=== PATIENT | female | born 1985 | race Caucasian/White ===

== ENCOUNTER 2016-10-26 15:53 | Emergency (ER) | payer OTHER ==
[2016-10-26] MEDS ORDERED: ONDANSETRON 4 MG TAB.RAPDIS PO ONE (16:04)
--- NOTE | 2016-10-26 16:04 | ER Document Report ---
ED Medical Screen (RME) - General Stated Complaint: VOMITING Notes: 31 yo female c/o epigastric pain and vomiting x 30 minutes. + hx/o lupus pt actively vomiting.
[2016-10-26] MEDS ORDERED: ONDANSETRON 4 MG TAB.RAPDIS ONE (16:46)
[2016-10-26 17:04] LABS: ABSOLUTE BASOPHILS # (AUTO) 0.1 10^3/uL (0.0-0.2); ABSOLUTE EOSINOPHILS # (AUTO) 0.6 10^3/uL (0.0-0.6); ABSOLUTE LYMPHOCYTES (AUTO) 3.1 10^3/uL (0.5-4.7); ABSOLUTE MONOCYTES (AUTO) 0.7 10^3/uL (0.1-1.4); ABSOLUTE NEUT (AUTO) 8.7 10^3/uL (1.7-8.2); BASOPHILS % (AUTO) 0.7 % (0-2); EOSINOPHILS % (AUTO) 4.6 % (0-6); HEMATOCRIT 43.7 % (36.0-47.0); HEMOGLOBIN 14.6 g/dL (12.0-15.5); HGB HCT DIFFERENCE 0.1; LYMPHOCYTES % (AUTO) 23.4 % (13-45); MEAN CORPUSCULAR HGB CONC 33.3 g/dL (32.0-36.0); MEAN CORPUSCULAR VOLUME 87 fl (80-97); MONOCYTES % (AUTO) 5.2 % (3-13); RED BLOOD COUNT 5.03 10^6/uL (3.72-5.28); RED CELL DISTRIBUTION WIDTH 13.8 % (11.5-14.0); SEGMENTED NEUTROPHILS % (AUTO) 66.1 % (42-78); WHITE BLOOD COUNT 13.2 10^3/uL (4.0-10.5)
[2016-10-26 17:07] LABS: ALANINE AMINOTRANSFERASE 29 U/L (9-52); ALBUMIN 4.4 g/dL (3.5-5.0); ALKALINE PHOSPHATASE 76 U/L (38-126); ANION GAP 11 (5-19); ASPARTATE AMINO TRANSFERASE 16 U/L (14-36); BILIRUBIN,TOTAL 0.6 mg/dL (0.2-1.3); BLOOD UREA NITROGEN 10 mg/dL (7-20); CALCIUM 9.8 mg/dL (8.4-10.2); CARBON DIOXIDE 26 mmol/L (22-30); CHLORIDE 111 mmol/L (98-107); CREATININE RESULT 0.66 mg/dL (0.52-1.25); GLUCOSE 106 mg/dL (75-110); LIPASE 41.2 U/L (23-300); POTASSIUM 4.9 mmol/L (3.6-5.0); TOTAL PROTEIN 7.4 g/dL (6.3-8.2)
[2016-10-26] MEDS ORDERED: HYDROCODONE/ACETAMINOPHEN 5-325 MG 6 TAB/DSPK PO PRN (19:44)
[2016-10-26] MEDS ORDERED: ONDANSETRON ODT 4 MG TAB (6 TAB/DSPK) PO PRN (19:44)
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
[2016-10-26] MEDS ORDERED: LIDOCAINE 5% (700 MG) TRANSDERMAL ADH..PATCH TP ONE (19:45)
== END 2016-10-26 20:26 | disposition home or self-care (01) ==
LOC: ER 15:53
DX: G89.29 Other chronic pain (principal); M54.9 Dorsalgia, unspecified; M54.2 Cervicalgia; V89.2XXS Person injured in unspecified motor-vehicle accident, traffic, sequela; R11.2 Nausea with vomiting, unspecified; Z88.0 Allergy status to penicillin; Z88.8 Allergy status to other drugs, medicaments and biological substances; Z88.2 Allergy status to sulfonamides
CPT/HCPCS: 99283; 36415; 83690; 85025; 80053; S0119

== ENCOUNTER 2016-11-15 05:31 | Emergency (ER) | payer OTHER ==
[2016-11-15 06:10] LABS: ABSOLUTE BASOPHILS # (AUTO) 0.1 10^3/uL (0.0-0.2); ABSOLUTE EOSINOPHILS # (AUTO) 0.2 10^3/uL (0.0-0.6); ABSOLUTE LYMPHOCYTES (AUTO) 1.5 10^3/uL (0.5-4.7); ABSOLUTE MONOCYTES (AUTO) 0.7 10^3/uL (0.1-1.4); ABSOLUTE NEUT (AUTO) 9.9 10^3/uL (1.7-8.2); BASOPHILS % (AUTO) 0.4 % (0-2); EOSINOPHILS % (AUTO) 1.9 % (0-6); HEMATOCRIT 39.1 % (36.0-47.0); HEMOGLOBIN 13.1 g/dL (12.0-15.5); HGB HCT DIFFERENCE 0.2; LYMPHOCYTES % (AUTO) 12.2 % (13-45); MEAN CORPUSCULAR HEMOGLOBIN 28.9 pg (27.0-33.4); MEAN CORPUSCULAR HGB CONC 33.4 g/dL (32.0-36.0); MEAN CORPUSCULAR VOLUME 86 fl (80-97); MONOCYTES % (AUTO) 5.5 % (3-13); RED BLOOD COUNT 4.53 10^6/uL (3.72-5.28); RED CELL DISTRIBUTION WIDTH 13.6 % (11.5-14.0); WHITE BLOOD COUNT 12.4 10^3/uL (4.0-10.5)
[2016-11-15 06:22] LABS: ALANINE AMINOTRANSFERASE 32 U/L (9-52); ALBUMIN 3.9 g/dL (3.5-5.0); ALKALINE PHOSPHATASE 64 U/L (38-126); ANION GAP 17 (5-19); ASPARTATE AMINO TRANSFERASE 13 U/L (14-36); BILIRUBIN,DIRECT 0.1 mg/dL (0.0-0.4); BILIRUBIN,TOTAL 0.3 mg/dL (0.2-1.3); BLOOD UREA NITROGEN 8 mg/dL (7-20); CALCIUM 8.3 mg/dL (8.4-10.2); CARBON DIOXIDE 24 mmol/L (22-30); CHLORIDE 105 mmol/L (98-107); CREATINE KINASE 79 U/L (30-135); GLUCOSE 127 mg/dL (75-110); POTASSIUM 4.2 mmol/L (3.6-5.0); SODIUM 145.8 mmol/L (137-145); TOTAL PROTEIN 6.6 g/dL (6.3-8.2)
[2016-11-15 06:33] LABS: CREATINE KINASE MB < 0.22 ng/mL (<4.55); TROPONIN I < 0.012 ng/mL
--- NOTE | 2016-11-15 07:34 | ER Document Report ---
ED Seizure - General Mode of Arrival: Medic Information source: Patient, Relative - - HPI Patient complains to provider of: First seizure Time of onset: 0430 Continued on arrival to ED: No Episode witnessed (by whom): Yes - Preceding symptoms/context: Recent drug use, Changed meds or dosage, Other - Took tramadol Character of seizure: No: Incontinent bladder <GAURAV KRAUS - Last Filed: 11/15/16 09:24> <GEORGES KIRBY - Last Filed: 11/15/16 21:19> - General Chief Complaint: Passed Out Prior to Arrival Stated Complaint: ALTERED MENTAL STATUS Notes: Patient is a 31-year-old female presenting to the emergency department via EMS after having a possible seizure at approximately 0430 this morning. Patient's states that he awoke to a bunch of banging in the bathroom, and he went to check on the patient and she began to convulse, sliding down the door with her hands curled. Patient's states that she was turning blue and her tongue was sticking out. Patient's called EMS. Patient's states that when she stopped convulsing, she was sleeping, and then she began to convulse one more time. At that point EMS showed up and brought her in. Patient's states that while she was lying on the bathroom floor, she had some blood coming out of her mouth that is now dried on her arm. Patient now states that she feels very tired, and she has been having bilateral leg swelling and midsternal chest pain. Patient states that she just moved here from [place], and she just started at a new pain management doctor for her rheumatoid arthritis and lupus. Patient was put on Neurontin, steroid, and this morning she took a tramadol. Patient states that the only thing she remembers about this morning is that she woke up to do her makeup and then the next thing she remembers is that she was in the ambulance. (GAURAV KRAUS) - Related Data Allergies/Adverse Reactions: Penicillins Allergy (Verified 10/26/16 16:15) prochlorperazine [From Compazine] Allergy (Verified 10/26/16 16:15) promethazine [From Phenergan] Allergy (Verified 10/26/16 16:15) Sulfa (Sulfonamide Antibiotics) Allergy (Verified 10/26/16 16:15) Past Medical History - General Information source: Patient, Relative - Spouse - Social History Smoking Status: Unknown if Ever Smoked Lives with: Family Family History: Reviewed & Not Pertinent Renal/ Medical History: Denies: Hx Peritoneal Dialysis Musculoskeltal Medical History: Reports Hx Arthritis - RA Surgical Hx: Negative <GAURAV KRAUS - Last Filed: 11/15/16 09:24> Review of Systems - Review of Systems Constitutional: No symptoms reported EENT: No symptoms reported Cardiovascular: See HPI, Chest pain Respiratory: No symptoms reported Gastrointestinal: No symptoms reported Genitourinary: No symptoms reported. denies: Incontinence Female Genitourinary: No symptoms reported Musculoskeletal: No symptoms reported Skin: No symptoms reported Hematologic/Lymphatic: No symptoms reported Neurological/Psychological: See HPI, Seizure -: Yes All other systems reviewed and negative <GAURAV KRAUS - Last Filed: 11/15/16 09:24> Physical Exam - General General appearance: Alert - HEENT Head: Normocephalic, Atraumatic Eyes: Normal Pupils: PERRL - Respiratory Respiratory status: No respiratory distress Chest status: Nontender Breath sounds: Normal Chest palpation: Normal - Cardiovascular Rhythm: Regular Heart sounds: Normal auscultation Murmur: No - Abdominal Inspection: Obese Distension: No distension Bowel sounds: Normal Tenderness: Nontender Organomegaly: No organomegaly - Back Back: Normal, Nontender - Extremities General upper extremity: Normal inspection, Nontender General lower extremity: Normal inspection, Nontender - Neurological Neuro grossly intact: Yes Cognition: Normal Orientation: AAOx4 [place] Coma Scale Eye Opening: Spontaneous Liu Coma Scale Verbal: Oriented [place] Coma Scale Motor: Obeys Commands [place] Coma Scale Total: 15 Speech: Normal - Psychological Associated symptoms: Normal affect, Normal mood - Skin Skin Temperature: Warm Skin Moisture: Dry Skin Color: Normal <GAURAV KRAUS - Last Filed: 11/15/16 09:24> Course - Laboratory Result Diagrams: 11/15/16 05:57 11/15/16 05:57 <GAURAV KRAUS - Last Filed: 11/15/16 09:24> - Laboratory Result Diagrams: 11/15/16 05:57 11/15/16 05:57 <GEORGES KIRBY - Last Filed: 11/15/16 21:19> - Re-evaluation Re-evalutation: 11/15/16 08:30 I personally performed the services described in the documentation, reviewed and edited the documentation which was dictated to my scribe in my presence, and it accurately records my words and actions. states she recently moved here from out of town is out of all of her chronic medications for lupus chronic pain and rheumatoid arthritis a local primary care physician gave her some Ultram the other day and is sending her to a plate painter which she has an appointment for. She describes an event that took place this morning which is somewhat inconclusive based on the history she says she was getting ready to put her makeup on and neck he she remembers is being in the ambulance. states he heard her banging on the wall to get his attention and we realized she was in the bathroom he came to get her. He said she was sliding down the wall having potential seizure-like activity she was not incontinent of urine or stool. EMS reports snoring possibly postictal. She does not have a history of a seizure disorder told her stop taking the Ultram as it can predispose to it. CT of head CT of the neck negative acute laboratory evaluation is all negative for acute pathology with the exception of a urinary tract infection which gave her Macrobid for. She is requesting Dilaudid for headache explained to her that we don't use Dilaudid for headaches in the emergency department nor do we treat chronic pain in this emergency department going forward have her follow-up with a primary care physician treat her with antibiotics for urinary tract infection given the name and number to a neurologist to follow up with his well. She is to follow up with these physicians in the next 3-4 days and discussed reasons Filomena return sooner 11/15/16 08:43 Patient reports the Macrobid doesn't work for her chronic UTIs prefers Keflex switch over to Keflex she lists an allergy to penicillin but states she can take Keflex. (GEORGES KIRBY) - Vital Signs Vital signs: Temp Pulse Resp BP Pulse Ox 98.6 F 139 H 16 106/62 95 11/15/16 08:30 11/15/16 05:41 11/15/16 08:30 11/15/16 08:30 11/15/16 08:30 - Laboratory Laboratory results interpreted by me: 11/15/16 11/15/16 11/15/16 05:57 05:57 07:43 WBC 12.4 H Seg Neutrophils % 80.0 H Lymphocytes % 12.2 L Absolute Neutrophils 9.9 H Sodium 145.8 H Glucose 127 H Calcium 8.3 L AST 13 L Urine Protein 100 H Urine Blood LARGE H Ur Leukocyte Esterase TRACE H Urine Ascorbic Acid 40 H Discharge <GAURAV KRAUS - Last Filed: 11/15/16 09:24> <GEORGES KIRBY - Last Filed: 11/15/16 21:19> - Discharge Clinical Impression: altered mental status resolved, cephalgia Urinary tract infection Qualifiers: Urinary tract infection type: acute cystitis Hematuria presence: without hematuria Qualified Code(s): N30.00 - Acute cystitis without hematuria Chronic pain Qualifiers: Chronic pain type: chronic pain syndrome Qualified Code(s): G89.4 - Chronic pain syndrome Condition: Stable Disposition: HOME, SELF-CARE Instructions: Urinary Tract Infection ([facility]) Additional Instructions: possible Seizure Seizures may be due to drugs and alcohol, strokes, brain injury, or infection. In the most common form of epilepsy, no cause can be found. You will require further evaluation to determine if you have a seizure , and to determine whether anti-seizure medication is required. This follow-up testing is important, so please call us if you encounter problems with scheduling of tests or appointments. YOU SHOULD NOT DRIVE until released to do so by your physician. The law requires that seizures be reported to the home delivery driver's license bureau--a seizure while driving could be catastrophic. Call the doctor if seizures recur, or if you develop new symptoms such as fever, severe headache, stiff neck, confusion or increasing sleepiness, weakness or numbness, or visual problems. Stop Ultram Urinary Tract Infection Your evaluation indicates that you have a urinary tract infection. This is due to germs growing in the bladder. This is a common problem. This infection usually responds quickly to antibiotics. Your antibiotic should be taken exactly as prescribed. Drink plenty of fluids -- three to four quarts a day. Occasionally, a bladder anesthetic will be prescribed to help stop the feeling of urgency until the antibiotic has a chance to clear the infection. This may cause your urine to be dark orange. Certain urine infections require a culture. If the doctor obtained a culture, the results will be back in two days. You should call to see if a change in treatment is needed. A repeat urinalysis after you finish treatment is often recommended. The physician will let you know if further testing is required. Call the doctor if you develop fever, chills, flank pain, inability to urinate, or blood in the urine. Chronic Pain Control Stress, inactivity, and depression make pain more severe regardless of the cause of the pain. Stress and poor physical condition can cause pain such as headaches and backache. Relaxation: Rest in a quiet place with your eyes closed for 20 minutes twice daily. Concentrate on a pleasant image, or simply "feel" your breathing. Clear your mind. Stress management: Deal with your "stressors." Either take action, or eliminate the stressor from your life. Don't let things hang over you. Accept those things you can't change. Nutrition: Eat small, balanced meals -- don't skip, don't overeat. Meals should be high-carbohydrate, low-sugar, low-fat. Exercise: Exercise helps painful conditions and eases stress. Get 30 minutes of moderate exercise, five days a week. Do an activity that does not flare your pain. Precautions: Pain which continues to disrupt daily activities, or which changes in nature, requires a medical evaluation. Pain Clinic referral is available. We do not manage chronic pain in the Emergency Department. We will try to appropriately help you through an acute flare of your chronic painful condition , but for on-going chronic pain that does not improve, you will need to see your private doctor or plate painter. We do not provide repeated medication management of chronic painful conditions. If you wish, we can provide the name of local pain management physicians. Prescriptions: Cephalexin Monohydrate [Keflex 500 mg Capsule] 500 mg PO QID #20 capsule Nitrofurantoin/Nitrofuran Mac [Macrobid 100 mg Capsule] 1 tab PO BID #20 capsule Referrals: JESSICA AMBROSIO MD [ACTIVE STAFF] - Follow up in 3-5 days (Call his office today for follow-up appointment in regards to evaluating for seizures.) YASH XIE MD [ACTIVE STAFF] - Follow up in 3-5 days (Return to the ER sooner for increasing worsening or new symptoms) Scribe Documentation - Scribe Written by Kamryn:: Gaurav Kraus 11/15/2016 0724 acting as scribe for :: GAURAV Marrero - Last Filed: 11/15/16 09:24>
[2016-11-15 08:07] LABS: APPEARANCE,URINE SLIGHTLY-CLOUDY; BILIRUBIN,URINE NEGATIVE (NEGATIVE); GLUCOSE, URINE NEGATIVE (NEGATIVE); KETONES,URINE NEGATIVE (NEGATIVE); LEUKOCYTE ESTERASE,URINE TRACE (NEGATIVE); NITRITE,URINE NEGATIVE (NEGATIVE); PROTEIN,URINE 100 mg/dL (NEGATIVE); URINE SPECIFIC GRAVITY 1.015; UROBILINOGEN,URINE NEGATIVE mg/dL (<2.0)
[2016-11-15] MEDS ORDERED: ACETAMINOPHEN 325 MG TABLET PO ONE (08:12)
[2016-11-15 08:22] LABS: URINE BARBITURATES SCREEN NEGATIVE; URINE METHADONE SCREEN NEGATIVE; URINE OPIATES LOW NEGATIVE; URINE PHENCYCLIDINE SCREEN NEGATIVE
[2016-11-15 08:58] VITALS: BP 106/62
--- NOTE | 2016-11-15 13:08 | EKG REPORT ---
SEVERITY:- OTHERWISE NORMAL ECG - SINUS TACHYCARDIA : Confirmed by: Socorro Benitez MD 15-Nov-2016 13:08:27
== END 2016-11-15 09:00 | disposition home or self-care (01) ==
LOC: ER 05:31
DX: N30.00 Acute cystitis without hematuria (principal); R41.82 Altered mental status, unspecified; R51 Headache; G89.4 Chronic pain syndrome
CPT/HCPCS: 36415; 70450; 72125; 80053; 80307; 81001; 81025; 82550; 82553; 84484; 85025; 93005; 93010; 99285

== ENCOUNTER 2017-03-05 19:17 | Emergency (ER) | payer OTHER ==
[2017-03-05 19:39] VITALS: BP 130/61
[2017-03-05] MEDS ORDERED: OXYCODONE-ACETAMINOPHEN 5-325 MG TABLET PO ONE (20:04)
[2017-03-05] MEDS ORDERED: ONDANSETRON 4 MG TAB.RAPDIS PO ONE (20:04)
--- NOTE | 2017-03-05 20:06 | ER Document Report ---
ED GI/ - General Chief Complaint: Possible Kidney Stone Stated Complaint: PAIN URINATING/HEADACHE/LEFT FLANK PAIN Time Seen by Provider: 03/05/17 19:55 Notes: Patient is a 32-year-old female that comes emergency department for chief complaint of flank pain that is worse on the left side and radiating around to her left lower abdomen, nausea, and also "pain in the urethra intermittently". She states last time she had this symptom she had a kidney stone. She denies fever. She was placed on Macrobid and Pyridium 3 days ago, states she is has not improved. She denies vaginal discharge or bleeding. She states she suffers from chronic urinary tract infections. She denies any daily medications, only surgeries reported are C-sections. She denies any other medical history. TRAVEL OUTSIDE OF THE [place] IN LAST 30 DAYS: No - Related Data Allergies/Adverse Reactions: amoxicillin Allergy (Verified 03/05/17 19:48) metoclopramide [From Reglan] Allergy (Verified 03/05/17 19:48) Penicillins Allergy (Verified 03/05/17 19:38) prochlorperazine [From Compazine] Allergy (Verified 03/05/17 19:38) promethazine [From Phenergan] Allergy (Verified 03/05/17 19:38) Sulfa (Sulfonamide Antibiotics) Allergy (Verified 03/05/17 19:38) Past Medical History - General Information source: Patient - Social History Smoking Status: Never Smoker Frequency of alcohol use: None Drug Abuse: None Lives with: Family Family History: Reviewed & Not Pertinent Renal/ Medical History: Reports: Hx Kidney Stones. Denies: Hx Peritoneal Dialysis Musculoskeltal Medical History: Reports Hx Arthritis - RA Past Surgical History: Reports: Hx Section, Hx Oral Surgery - wisdom teeth Review of Systems - Review of Systems Constitutional: No symptoms reported EENT: No symptoms reported Cardiovascular: No symptoms reported Respiratory: No symptoms reported Gastrointestinal: See HPI Genitourinary: See HPI Female Genitourinary: No symptoms reported Musculoskeletal: No symptoms reported Skin: No symptoms reported Hematologic/Lymphatic: No symptoms reported Neurological/Psychological: No symptoms reported Physical Exam - Vital signs Vitals: Temp Pulse Resp BP Pulse Ox 98.5 F 99 20 130/61 H 99 03/05/17 19:37 03/05/17 19:37 03/05/17 19:37 03/05/17 19:37 03/05/17 19:37 Interpretation: Normal - General General appearance: Appears well, Alert In distress: None - HEENT Head: Normocephalic, Atraumatic Eyes: Normal Conjunctiva: Normal Extraocular movements intact: Yes Eyelashes: Normal Pupils: PERRL Nasal: Normal Mouth/Lips: Normal Mucous membranes: Normal Pharynx: Normal Neck: Normal - Respiratory Respiratory status: No respiratory distress Chest status: Nontender Breath sounds: Normal. No: Decreased air movement, Wheezing Chest palpation: Normal - Cardiovascular Rhythm: Regular. No: Tachycardia Heart sounds: Normal auscultation, S1 appreciated, S2 appreciated Murmur: No - Abdominal Inspection: Normal Distension: No distension Bowel sounds: Normal Tenderness: Nontender. No: Tender, Guarding - Completely nontender and every quadrant, no rigidity, no guarding Organomegaly: No organomegaly - Back Back: Normal, Nontender. No: Tender, CVA tenderness - Extremities General upper extremity: Normal inspection, Nontender, Normal color, Normal ROM , Normal temperature General lower extremity: Normal inspection, Nontender, Normal color, Normal ROM , Normal temperature, Normal weight bearing. No: Mari's sign - Neurological Neuro grossly intact: Yes Cognition: Normal Orientation: AAOx4 [place] Coma Scale Eye Opening: Spontaneous Liu Coma Scale Verbal: Oriented [place] Coma Scale Motor: Obeys Commands [place] Coma Scale Total: 15 Speech: Normal Motor strength normal: LUE, RUE, LLE, RLE Sensory: Normal - Psychological Associated symptoms: Normal affect, Normal mood - Skin Skin Temperature: Warm Skin Moisture: Dry Skin Color: Normal Course - Re-evaluation Re-evalutation: Patient does not appear to be in any distress, no tachycardia, no hypotension, no fever. CBC and chemistry unremarkable. Patient does not have CVA tenderness or abdominal tenderness on my examination. Patient insists that she is having stone, there is no recent imaging, she patient states she has not had any recent imaging either here or back home. Patient requests a CAT scan. Urine does show nitrates, red blood cells. We will perform CAT scan to rule out obstructive stone with infection. CT shows no nephrolithiasis or ureterolithiasis, does show incidental mesenteric lymphadenopathy, however patient has no fever, leukocytosis, or other concerning abnormality suggesting underlying concerning abnormality other than urinary tract infection. Patient given Rocephin, will be placed on Keflex , urine culture, discussed results with patient in detail, discussed follow-up, discussed return precautions, patient states understanding and agreement. - Vital Signs Vital signs: Temp Pulse Resp BP Pulse Ox 98.5 F 99 20 130/61 H 99 03/05/17 19:37 03/05/17 19:37 03/05/17 19:37 03/05/17 19:37 03/05/17 19:37 - Laboratory Result Diagrams: 03/05/17 20:20 03/05/17 20:20 Laboratory results interpreted by me: 03/05/17 03/05/17 19:50 20:20 Glucose 111 H Urine Blood LARGE H Urine Nitrite POSITIVE H Urine Urobilinogen 4.0 H Discharge - Discharge Clinical Impression: Flank pain, Dysuria Condition: Stable Disposition: HOME, SELF-CARE Additional Instructions: No kidney stone is seen either in your kidneys or passing through the urinary tract. There is some swollen lymph nodes, this is nonspecific, could be from recent viral illness or other abnormality. Your urine indicates an infection. You have been given Rocephin tonight, take the antibiotics prescribed to completion. Stop macrobid. Continue pyridium. Follow-up with primary care. Return to emergency department for any concerning or worsening symptoms including fever, vomiting, etc. Prescriptions: Cephalexin Monohydrate [Keflex 500 mg Capsule] 500 mg PO BID #14 capsule
[2017-03-05 20:20] LABS: APPEARANCE,URINE CLEAR; BILIRUBIN,URINE NEGATIVE (NEGATIVE); GLUCOSE, URINE NEGATIVE (NEGATIVE); KETONES,URINE NEGATIVE (NEGATIVE); LEUKOCYTE ESTERASE,URINE NEGATIVE (NEGATIVE); NITRITE,URINE POSITIVE (NEGATIVE); PROTEIN,URINE NEGATIVE (NEGATIVE); URINE SPECIFIC GRAVITY 1.013
[2017-03-05 20:26] LABS: ABSOLUTE BASOPHILS # (AUTO) 0.1 10^3/uL (0.0-0.2); ABSOLUTE EOSINOPHILS # (AUTO) 0.5 10^3/uL (0.0-0.6); ABSOLUTE LYMPHOCYTES (AUTO) 2.5 10^3/uL (0.5-4.7); ABSOLUTE MONOCYTES (AUTO) 0.8 10^3/uL (0.1-1.4); ABSOLUTE NEUT (AUTO) 6.5 10^3/uL (1.7-8.2); EOSINOPHILS % (AUTO) 4.5 % (0-6); HEMATOCRIT 38.4 % (36.0-47.0); HEMOGLOBIN 13.1 g/dL (12.0-15.5); HGB HCT DIFFERENCE 0.9; LYMPHOCYTES % (AUTO) 23.9 % (13-45); MEAN CORPUSCULAR HEMOGLOBIN 27.9 pg (27.0-33.4); MEAN CORPUSCULAR HGB CONC 34.1 g/dL (32.0-36.0); MEAN CORPUSCULAR VOLUME 82 fl (80-97); MONOCYTES % (AUTO) 7.4 % (3-13); RED BLOOD COUNT 4.69 10^6/uL (3.72-5.28); RED CELL DISTRIBUTION WIDTH 13.9 % (11.5-14.0); SEGMENTED NEUTROPHILS % (AUTO) 63.2 % (42-78); WHITE BLOOD COUNT 10.3 10^3/uL (4.0-10.5)
[2017-03-05 20:45] LABS: ALANINE AMINOTRANSFERASE 24 U/L (9-52); ALBUMIN 3.9 g/dL (3.5-5.0); ALKALINE PHOSPHATASE 73 U/L (38-126); ANION GAP 13 (5-19); ASPARTATE AMINO TRANSFERASE 15 U/L (14-36); BILIRUBIN,DIRECT 0.2 mg/dL (0.0-0.4); BILIRUBIN,TOTAL 0.4 mg/dL (0.2-1.3); BLOOD UREA NITROGEN 9 mg/dL (7-20); CARBON DIOXIDE 23 mmol/L (22-30); CHLORIDE 104 mmol/L (98-107); CREATININE RESULT 0.75 mg/dL (0.52-1.25); GLUCOSE 111 mg/dL (75-110); POTASSIUM 4.2 mmol/L (3.6-5.0); SODIUM 139.7 mmol/L (137-145); TOTAL PROTEIN 7.1 g/dL (6.3-8.2)
[2017-03-05] MEDS ORDERED: MORPHINE SULFATE 10 MG/ML INJ IM ONE (21:10)
--- NOTE | 2017-03-05 21:41 | RADIOLOGY REPORT (SQ) ---
EXAM DESCRIPTION: CT LTD RENAL STONE PROTOCOL ON COMPLETED DATE/TIME: 03/05/2017 9:20 pm REASON FOR STUDY: left flank pain, UTI, ? obstructing stone COMPARISON: None. TECHNIQUE: CT scan of the abdomen and pelvis performed without intravenous or oral contrast. Images reviewed with lung, soft tissue, and bone windows. Reconstructed coronal and sagittal MPR images revi ewed. All images stored on PACS. All CT scanners at this facility use dose modulation, iterative reconstruction, and/or weight based d osing when appropriate to reduce radiation dose to as low as reasonably achievable (ALARA). [facility]: Dose Right [facility]: CareDose [facility]: Dose Right [facility]: Teradose 4D [facility]: [employer] RADIATION DOSE: Up-to-date CT equipment and radiation dose reduction techniques were employed. CTDIv ol: 18.9 mGy. DLP: 1019 mGy-cm.mGy. LIMITATIONS: None. FINDINGS: LOWER CHEST: No significant findings. No nodules or infiltrates. NON-CONTRASTED LIVER, SPLEEN, ADRENALS: Evaluation limited by lack of IV contrast. No identified sign ificant masses. PANCREAS: No masses. No peripancreatic inflammatory changes. GALLBLADDER: No identified stones by CT criteria. No inflammatory changes to suggest cholecystitis. RIGHT KIDNEY AND URETER: No suspicious masses. Assessment limited by lack of IV contrast. No signif icant calcifications. No hydronephrosis or hydroureter. LEFT KIDNEY AND URETER: No suspicious masses. Assessment limited by lack of IV contrast. No signifi cant calcifications. No hydronephrosis or hydroureter. AORTA AND RETROPERITONEUM: No aneurysm. No retroperitoneal masses or adenopathy. BOWEL AND PERITONEAL CAVITY: No obvious masses or inflammatory changes. No free fluid. Multiple prom inent mesenteric lymph nodes are identified. This is a nonspecific finding but could be related to a mesenteric adenitis. APPENDIX: Normal. PELVIS, BLADDER, AND ABDOMINAL WALL:No abnormal masses. No free fluid. Bladder normal. BONES: No significant findings. OTHER: No other significant finding. IMPRESSION: Multiple prominent mesenteric lymph nodes are identified as noted above. This is a nons pecific finding but could be related to mesenteric adenitis. No renal or ureteric calculi are identi fied. Other findings as noted above TECHNICAL DOCUMENTATION: JOB ID: [id number] Quality ID # [id number]: Final reports with documentation of one or more dose reduction techniques (e.g., Au tomated exposure control, adjustment of the mA and/or kV according to patient size, use of iterative reconstruction technique) 2010 [employer]- All Rights Reserved
[2017-03-05] MEDS ORDERED: CEFTRIAXONE INJ 1000 MG VIAL IM ONE (22:05)
[2017-03-05] MEDS ORDERED: HYDROCODONE/ACETAMINOPHEN 5-325 MG 6 TAB/DSPK PO PRN (22:05)
[2017-03-05] MEDS ORDERED: LIDOCAINE 1% INJ-PF (10 MG/ML) 30 ML SDV INJ ONE (22:05)
== END 2017-03-05 22:29 | disposition home or self-care (01) ==
LOC: ER 19:17
DX: R30.0 Dysuria (principal); R10.9 Unspecified abdominal pain; R10.32 Left lower quadrant pain; R11.0 Nausea
CPT/HCPCS: 99284; 96372; 36415; 87086; 85025; 81025; 80053; 81001; 76380; S0119; J3490; J2270; J0696

== ENCOUNTER 2017-04-05 17:28 | Emergency (ER) | payer OTHER ==
--- NOTE | 2017-04-05 18:36 | ER Document Report ---
HPI - HPI Pain Level: 4 Context: 32 yo female c/o left ear pain x 1 week. no fever Associated Symptoms: None Exacerbated by: Denies Relieved by: Denies - ROS Systems Reviewed and Negative: Yes All other systems reviewed and negative - DERM Skin Color: Normal Past Medical History - General Information source: Patient - Social History Smoking Status: Never Smoker Frequency of alcohol use: None Drug Abuse: None Lives with: Family Family History: Reviewed & Not Pertinent Patient has suicidal ideation: No Patient has homicidal ideation: No Renal/ Medical History: Reports: Hx Kidney Stones. Denies: Hx Peritoneal Dialysis Musculoskeltal Medical History: Reports Hx Arthritis - RA Past Surgical History: Reports: Hx Section, Hx Oral Surgery - wisdom teeth Vertical Provider Document - CONSTITUTIONAL Agree With Documented VS: Yes Exam Limitations: No Limitations - INFECTION CONTROL TRAVEL OUTSIDE OF THE [place] IN LAST 30 DAYS: No - HEENT HEENT: Atraumatic, PERRLA Notes: + pus behind left TM. left EAC erythematous and edematous. + pre and post auricular tenderness. mastoid nontender - NECK Neck: Normal Inspection, Supple - RESPIRATORY Respiratory: Breath Sounds Normal, No Respiratory Distress O2 Sat by Pulse Oximetry: 98 - CARDIOVASCULAR Cardiovascular: Regular Rate, Regular Rhythm - MUSCULOSKELETAL/EXTREMETIES Musculoskeletal/Extremeties: MIMI ALONSO - NEURO Level of Consciousness: Awake, Alert, Appropriate - DERM Integumentary: Warm, Dry Course - Vital Signs Vital signs: Temp Pulse Resp BP Pulse Ox 97.9 F 101 H 18 121/71 98 04/05/17 17:32 04/05/17 17:32 04/05/17 17:32 04/05/17 17:32 04/05/17 17:32 Discharge - Discharge Clinical Impression: Acute left otitis media Acute otitis externa of left ear Qualifiers: Otitis externa type: unspecified type Qualified Code(s): H60.502 - Unspecified acute noninfective otitis externa, left ear Condition: Stable Disposition: HOME, SELF-CARE Instructions: Use of Ear Drops ([facility]), Otitis Externa ([facility]), Otitis Media ([facility]) , Antibiotic Therapy ([facility]) Additional Instructions: You have an inner and outer ear infection take all antibiotic as prescribed follow up with primary care if symptoms persist Prescriptions: Cefdinir [Omnicef 300 mg Capsule] 1 cap PO BID #30 capsule Ciprofloxacin HCl/Dexameth [Ciprodex Otic Suspension 7.5 ml Bottle] 4 drop OT BID #1 bottle
[2017-04-05 19:01] VITALS: BP 126/81
== END 2017-04-05 19:01 | disposition home or self-care (01) ==
LOC: ER 17:28
DX: H92.02 Otalgia, left ear (principal); H66.92 Otitis media, unspecified, left ear; H60.502 Unspecified acute noninfective otitis externa, left ear
CPT/HCPCS: 99282

== ENCOUNTER → 2017-05-16 | Outpatient (CLI) | payer OTHER ==
--- NOTE | 2017-05-16 17:16 | RADIOLOGY REPORT (SQ) ---
EXAM DESCRIPTION: MRI CERVICAL SPINE WITHOUT COMPLETED DATE/TIME: 05/16/2017 4:26 pm REASON FOR STUDY: CERVICALGIA M54.2 CERVICALGIA COMPARISON: CT cervical spine 11/15/2016 TECHNIQUE: Sagittal and Axial imaging includes T1, T2, STIR and gradient echo sequences. LIMITATIONS: None. FINDINGS: ALIGNMENT: Normal. VERTEBRAE: Intact. BONE MARROW: Normal. No marrow replacement or reactive changes. DISCS: Diffuse decreased T2 weighted intervertebral disc signal. Disc space loss of height at C5-6 a nd C6-7. HARDWARE: None in the spine. CORD AND BASE OF BRAIN: Normal in size and signal intensity. SOFT TISSUES: No soft tissue masses. C1-C2: No significant spinal stenosis. C2-C3: No significant spinal stenosis or exit foraminal stenosis. C3-C4: No significant spinal stenosis or exit foraminal stenosis. C4-C5: No significant spinal stenosis or exit foraminal stenosis. C5-C6: Broad diffuse posterior disc bulging is present, effacing the ventral thecal sac and abutting the ventral cord without cord flattening or abnormal intrinsic cord signal. No significant foraminal narrowing. C6-C7: Broad diffuse posterior disc bulging is present with a small left paracentral protrusion. Thi s effaces the ventral thecal sac and abuts the ventral cord without cord flattening or abnormal intri nsic cord signal. No significant foraminal stenosis. C7-T1: No significant spinal stenosis or exit foraminal stenosis. UPPER THORACIC: Incompletely imaged. No significant spinal stenosis or exit foraminal stenosis. OTHER: No other significant finding. IMPRESSION: Degenerative disc changes at C5-6 and C6-7 as above. TECHNICAL DOCUMENTATION: JOB ID: [id number] [id number]- All Rights Reserved
== END ==
LOC: RAD 15:39
PROVIDERS: ATTEND Family Medicine
DX: M54.2 Cervicalgia (principal); M50.323 Other cervical disc degeneration at C6-C7 level
CPT/HCPCS: 72141

== ENCOUNTER 2017-09-25 22:15 | Emergency (ER) | payer OTHER ==
[2017-09-25] MEDS ORDERED: ALBUTEROL SULFATE 0.083% NEB 2.5 MG/3 ML AMPUL NEB ONE (22:47)
[2017-09-25] MEDS ORDERED: DEXAMETHASONE SOD PHOS INJ 10 MG/1 ML VIAL IV ONE (23:03)
[2017-09-25] MEDS ORDERED: LEVOFLOXACIN 750 MG/D5W RTU 750 MG/150 ML RTUPB IV ONE (23:05)
--- NOTE | 2017-09-25 23:08 | ER Document Report ---
ED Medical Screen (RME) - General Chief Complaint: Flu Symptoms Stated Complaint: HEADACHE,RUNNY NOSE Time Seen by Provider: 09/25/17 22:47 Notes: Patient is a 32-year-old female presents emergency department with chief complaint of flulike symptoms but now with sudden onset shortness of breath and difficulty breathing this afternoon. Patient states that she has had nausea and epigastric discomfort that is tied down about 3 days ago then admits to sinus congestion yesterday but today admits to sore throat and no difficulty breathing. She states that it is difficult for her to breathe and she has a sore throat. She denies any sick contacts. allergy to penicillin and sulfa TRAVEL OUTSIDE OF THE [place] IN LAST 30 DAYS: No - Related Data Allergies/Adverse Reactions: amoxicillin Allergy (Verified 04/05/17 17:37) metoclopramide [From Reglan] Allergy (Verified 04/05/17 17:37) Penicillins Allergy (Verified 04/05/17 17:37) prochlorperazine [From Compazine] Allergy (Verified 04/05/17 17:37) promethazine [From Phenergan] Allergy (Verified 04/05/17 17:37) Sulfa (Sulfonamide Antibiotics) Allergy (Verified 04/05/17 17:37) Past Medical History - Social History Frequency of alcohol use: None Drug Abuse: None Renal/ Medical History: Reports: Hx Kidney Stones. Denies: Hx Peritoneal Dialysis Musculoskeltal Medical History: Reports Hx Arthritis - RA Past Surgical History: Reports: Hx Section, Hx Oral Surgery - wisdom teeth - Immunizations Hx Diphtheria, Pertussis, Tetanus Vaccination: Yes Physical Exam - Vital signs Vitals: Temp Pulse Resp BP Pulse Ox 98.5 F 130 H 28 H 132/93 H 100 09/25/17 22:20 09/25/17 22:20 09/25/17 22:20 09/25/17 22:20 09/25/17 22:20 - Notes Notes: PHYSICAL EXAM GENERAL: Alert, interacts well. HEENT: NCAT, pale conjunctiva, extraocular movements intact, pupils PERRL. external ear normal, no evidence of external auditory canal tenderness, blood/ drainage, cerumen impaction, TM intact without evidence of effusion, bulging, injection, MMM, Uvula midline. Airway patent. No visualized epiglottis. No evidence of tonsillar enlargement, peritonsillar abscess, retropharyngeal abscess. LUNGS: Clear to auscultation bilaterally, no wheezes, rales, or rhonchi. No respiratory distress. HEART: Tachycardic rate and rhythm. No murmurs, gallops, or rubs. NEUROLOGICAL: Alert and oriented x4. Normal speech. PSYCH: Normal affect, normal mood. Course - Vital Signs Vital signs: Temp Pulse Resp BP Pulse Ox 98.5 F 130 H 28 H 132/93 H 99 09/25/17 22:20 09/25/17 22:20 09/25/17 22:20 09/25/17 22:20 09/25/17 22:55
[2017-09-25 23:28] LABS: MEAN CORPUSCULAR HEMOGLOBIN 27.1 pg (27.0-33.4); MEAN CORPUSCULAR HGB CONC 33.4 g/dL (32.0-36.0); MEAN CORPUSCULAR VOLUME 81 fl (80-97); PLATELET COUNT 262 10^3/uL (150-450); RED BLOOD COUNT 5.17 10^6/uL (3.72-5.28); RED CELL DISTRIBUTION WIDTH 14.6 % (11.5-14.0); WHITE BLOOD COUNT 14.5 10^3/uL (4.0-10.5)
--- NOTE | 2017-09-25 23:39 | RADIOLOGY REPORT (SQ) ---
EXAM DESCRIPTION: SOFT TISSUE NECK CLINICAL HISTORY: 32 years, Female, stridor and sore throat COMPARISON: None. NUMBER OF VIEWS: Two TECHNIQUE: Frontal and lateral LIMITATIONS: None. FINDINGS: Nasopharynx appears patent. Prevertebral soft tissues are of normal thickness. Mild reversed lordotic curvature, moderate C5-C6 disc desiccation, mild cervicothoracic levo convexity. IMPRESSION: Mild reversed lordotic curvature of the cervical spine which may indicate soft tissue injury or spasm. Moderate C5-C6 disc desiccation.
[2017-09-25] MEDS: NORMAL SALINE 1000 ML 1,000 ML IV PRN (23:42)
[2017-09-25 23:54] LABS: ANION GAP 14 (5-19); BLOOD UREA NITROGEN 9 mg/dL (7-20); CALCIUM 9.8 mg/dL (8.4-10.2); CARBON DIOXIDE 25 mmol/L (22-30); CHLORIDE 103 mmol/L (98-107); GLUCOSE 100 mg/dL (75-110); POTASSIUM 4.3 mmol/L (3.6-5.0); SODIUM 141.7 mmol/L (137-145)
[2017-09-25] MEDS ORDERED: RACEPINEPHRINE HCL 2.25% NEB 0.5 ML AMPUL NEB ONE (23:57)
--- NOTE | 2017-09-25 23:57 | ER Document Report ---
ED General - General Chief Complaint: Flu Symptoms Stated Complaint: HEADACHE,RUNNY NOSE Time Seen by Provider: 09/25/17 22:47 TRAVEL OUTSIDE OF THE [place] IN LAST 30 DAYS: No - Related Data Allergies/Adverse Reactions: amoxicillin Allergy (Verified 04/05/17 17:37) metoclopramide [From Reglan] Allergy (Verified 04/05/17 17:37) Penicillins Allergy (Verified 04/05/17 17:37) prochlorperazine [From Compazine] Allergy (Verified 04/05/17 17:37) promethazine [From Phenergan] Allergy (Verified 04/05/17 17:37) Sulfa (Sulfonamide Antibiotics) Allergy (Verified 04/05/17 17:37) Past Medical History - Social History Smoking Status: Never Smoker Frequency of alcohol use: None Drug Abuse: None Family History: Reviewed & Not Pertinent Patient has suicidal ideation: No Patient has homicidal ideation: No Renal/ Medical History: Reports: Hx Kidney Stones. Denies: Hx Peritoneal Dialysis Musculoskeltal Medical History: Reports Hx Arthritis - RA Past Surgical History: Reports: Hx Section, Hx Oral Surgery - wisdom teeth - Immunizations Hx Diphtheria, Pertussis, Tetanus Vaccination: Yes Physical Exam - Vital signs Vitals: Temp Pulse Resp BP Pulse Ox 98.5 F 130 H 28 H 132/93 H 100 09/25/17 22:20 09/25/17 22:20 09/25/17 22:20 09/25/17 22:20 09/25/17 22:20 Course - Re-evaluation Re-evalutation: 09/25/17 23:58 On exam patient initially is making wheezing type noise with her upper airway. It is not with inspiration appears more with exhalation. Her lung gardiner are clear. When I get her to start talking she speaks in full sentences without difficulty. This seems to be more a laryngitis and anything. She does not currently have a fever. Being that she still has a squeezing type noise that seems to come from upper airway I will obtain a CT scan of her soft tissue the neck and also give her racemic epi treatment as I think symptomatically this will help her. 09/26/17 01:36 Patient is having a reaction to the Levaquin. She is itching. Levaquin was ordered in triage. The nurse says it has already been given. I have ordered some Benadryl for the patient. 09/26/17 02:12 Patient continues a she is short of breath and is taking short breaths. Despite this she is able to speak in full sentences without pausing her breathing and her pulse ox is 100%. 09/26/17 04:03 The patient continued to appear short of breath Isotec to ambulate the patient keep the pulse ox and monitor on the patient. One in the room and detected this. Since the patient stood up her heart rate went from 110-140. Her pulse ox dropped to 84% and her pulse oximeter had a very good plus. Patient immediately started to look unwell. I therefore had the patient lay back in bed and placed oxygen on her. With 2 L oxygen at rest she is 100%. Due to the patient's hypoxemia with exertion and her continue to clinically look and feel short of breath and felt appropriate to admit her. I will place her on Tamiflu. I did consider the possibility of pulmonary embolism however she has no risk factors for pulmonary embolism other than being little bit overweight and her symptoms started when she started having flulike symptoms the same time that her had flulike symptoms. Also patient is already had 1 contrast dye load when she had a CT of her neck. I think is best to wait 24 hours with observation to see if the patient's symptoms improve. If they do not improve she may need reconsideration of a CT of the chest. I did speak with Dr. Rosado, hospitalist, who agrees to admit the patient. Dictation of this chart was performed using voice recognition software; therefore, there may be some unintended grammatical errors. 09/26/17 05:31 Patient now has inform the nurse that she does not want to stay. She requests to leave. I did go back in the room informed patient that her admission orders have been entered by the hospitalist that I recommend that she states it was is still not 100% clear why exactly she is so short of breath and why she is having low oxygen whenever she gets up and walks. Patient says that she feels that she definitely has the flu. She says she does not like the risk-benefit profile Tamiflu and therefore she does not want to take that. She says that she has had flu once in the past and felt like this was able to rest at home get better. Informed her that at home she does not have the ability to measure her oxygen and does not have the ability to immediately intervene if she gets worse. Patient says she understands this but still does not want stay the hospital and feels that she will do better at home. Patient's is at bedside and his entire conversation. He understands my concerns. I informed the patient and her that we want her to return to ER anytime so can reevaluate her and make sure she is improving. I informed them that just because she is signing out AMA that does not mean that she is not welcome there. I informed them that we want her to come back as we want what is best for her. Patient and show appreciation of this and they do agree to return to ER if she starts worsening in any way. Dictation of this chart was performed using voice recognition software; therefore, there may be some unintended grammatical errors. - Vital Signs Vital signs: Temp Pulse Resp BP Pulse Ox 98.5 F 130 H 28 H 132/93 H 99 09/25/17 22:20 09/25/17 22:20 09/25/17 22:20 09/25/17 22:20 09/25/17 22:55 - Laboratory Result Diagrams: 09/25/17 23:17 09/25/17 23:17 Laboratory results interpreted by me: 09/25/17 23:17 WBC 14.5 H RDW 14.6 H Abs Neuts (Manual) 9.1 H Discharge - Discharge Clinical Impression: Flu-like symptoms, Hypoxemia, Tachycardia Condition: Stable Disposition: ADMITTED OBSERVATION Admitting Provider: Hospitalist Unit Admitted: Telemetry Additional Instructions: We respect your decision to want to sign out against medical advice. As discussed with you my concern is that you will have recurrent episodes of low oxygen concentrations in your blood which will lead to you becoming more sick and could put you into distress which could eventually lead to if untreated. Please have a very low threshold to return to the ER at anytime if you feel that you are worsening in any way or feel unwell. Please return to the ER at any time as we want what is best for you. Please follow up with your doctor in the next 24 hours if you do not return to the ER. Referrals: AWAIS ROSENBAUM PA-C [Primary Care Provider] - 09/26/17
[2017-09-26 00:04] LABS: ABSOLUTE LYMPHOCYTES# (MANUAL) 4.1 10^3/uL (0.5-4.7); ABSOLUTE MONOCYTES # (MANUAL) 0.7 10^3/uL (0.1-1.4); ABSOLUTE NEUTROPHILS# (MANUAL) 9.1 10^3/uL (1.7-8.2); BASOPHILS % (MANUAL) 0 % (0-2); EOSINOPHILS % (MANUAL) 4 % (0-6); LYMPHOCYTES % (MANUAL) 28 % (13-45); MONOCYTES % (MANUAL) 5 % (3-13); SEGMENTED NEUTROPHILS % (MAN) 63 % (42-78); TOTAL CELLS COUNTED 100
[2017-09-26 00:07] LABS: ANISOCYTOSIS SLIGHT; PLATELET COMMENT ADEQUATE; POLYCHROMASIA SLIGHT
[2017-09-26] MEDS: NORMAL SALINE 1000 ML 1,000 ML IV PRN (00:58)
[2017-09-26] MEDS ORDERED: DIPHENHYDRAMINE HCL 50 MG/ML VIAL IV ONE ×2 (01:35→03:54)
--- NOTE | 2017-09-26 01:39 | RADIOLOGY REPORT (SQ) ---
EXAM DESCRIPTION: CHEST SINGLE VIEW CLINICAL HISTORY: 32 years, Female, cough COMPARISON: None. FINDINGS: Normal lung volume, clear parenchyma, normal cardiac silhouette, and intact bony thorax. IMPRESSION: No acute cardiopulmonary findings.
--- NOTE | 2017-09-26 01:45 | RADIOLOGY REPORT (SQ) ---
EXAM DESCRIPTION: CT SOFT TISSUE NECK WITH CLINICAL HISTORY: 32 years Female, sore throat, dyspnea COMPARISON: None. TECHNIQUE: 75 mL Isovue-370 contrast. Coronal and sagittal reformat. This exam was performed according to our departmental dose-optimization program, which includes automated exposure control, adjustment of the mA and/or kV according to patient size and/or use of iterative reconstruction technique. FINDINGS: Mild/moderate bilateral suprahyoid cervical lymphadenopathy includes a 1.6 x 1.3 cm right-sided lymph node and 1.4 x 1.3 cm left side lymph node, image 46 of series 2. No drainable fluid collection. No abscess. No suspicious mass. Moderate C5-C6 disc desiccation and mild/moderate diffuse reversed lordotic curvature of the cervical spine. Inferior cranium, and upper thorax appear otherwise grossly intact. IMPRESSION: 1. Moderate bilateral cervical lymphadenopathy. 2. Small C5-C6 disc bulge. Reversed lordotic curvature of cervical spine.
[2017-09-26] MEDS ORDERED: OSELTAMIVIR PHOSPHATE 75 MG CAPSULE PO ONE (04:02)
[2017-09-26] MEDS ORDERED: RINGERS SOLUTION,LACTATED 1,000 ML IV PRN ×2 (04:44→04:45)
[2017-09-26] MEDS ORDERED: OSELTAMIVIR PHOSPHATE 75 MG CAPSULE ONE (04:44)
[2017-09-26] MEDS ORDERED: ACETAMINOPHEN 325 MG TABLET PO PRN (04:45)
[2017-09-26] MEDS ORDERED: MAGNESIUM SULFATE/D5W 1 GM/100 ML RTUPB IV ONE (04:54)
[2017-09-26 05:45] VITALS: BP 128/72
[2017-09-26] MEDS ORDERED: LANSOPRAZOLE 30 MG TAB.RAP.DR PO SCH (06:00)
[2017-09-26] MEDS ORDERED: LEVALBUTEROL HCL NEB 1.25 MG/3 ML AMPUL NEB SCH (08:00)
[2017-09-26] MEDS ORDERED: OSELTAMIVIR PHOSPHATE 75 MG CAPSULE PO SCH (10:00)
[2017-09-26] MEDS ORDERED: ENOXAPARIN SODIUM INJ 40 MG/0.4 ML DISP.SYRIN SUBCUT SCH (10:00)
== END 2017-09-26 08:44 | disposition admitted as inpatient to this hospital (09) ==
LOC: ER 22:15 → EH 09-26 04:34 → UNDOADMOB 09-26 04:34 → ER 09-26 08:44
DX: R09.02 Hypoxemia (principal); R00.0 Tachycardia, unspecified; R51 Headache; R09.89 Other specified symptoms and signs involving the circulatory and respiratory systems; R06.2 Wheezing; Z79.899 Other long term (current) drug therapy
CPT/HCPCS: 96376; 94640; 99285; 96361; 96375; 96365; 36415; 84703; 85025; 80048; 71045; 70360; 70491; J1200; J7030 ×2; J1100; J1956; J3490

== ENCOUNTER 2017-11-11 18:07 | Emergency (ER) | payer OTHER ==
--- NOTE | 2017-11-11 18:26 | ER Document Report ---
HPI - HPI Patient complains to provider of: Right great toenail ingrown Onset: Other - this week Onset/Duration: Gradual Quality of pain: Throbbing Pain Level: 3 Context: 32-year-old female complaining of ingrown toenail this week. There is a little bit of drainage in it started after she got a pedicure. No history of MRSA. Associated Symptoms: None Exacerbated by: Other - shoes Relieved by: Denies Similar symptoms previously: No Recently seen / treated by doctor: No - ROS ROS below otherwise negative: Yes Systems Reviewed and Negative: Yes All other systems reviewed and negative Past Medical History - General Information source: Patient - Social History Smoking Status: Never Smoker Frequency of alcohol use: None Drug Abuse: None Lives with: Family Family History: Reviewed & Not Pertinent Renal/ Medical History: Reports: Hx Kidney Stones. Denies: Hx Peritoneal Dialysis Musculoskeltal Medical History: Reports Hx Arthritis - RA Past Surgical History: Reports: Hx Section, Hx Oral Surgery - wisdom teeth - Immunizations Hx Diphtheria, Pertussis, Tetanus Vaccination: Yes Vertical Provider Document - CONSTITUTIONAL Agree With Documented VS: Yes Exam Limitations: No Limitations - INFECTION CONTROL TRAVEL OUTSIDE OF THE [place] IN LAST 30 DAYS: No - HEENT HEENT: Normocephalic - NECK Neck: Supple - MUSCULOSKELETAL/EXTREMETIES Musculoskeletal/Extremeties: MAEW, Tender - inflamed right great fibular side ingrown toenail with some exudate - NEURO Level of Consciousness: Awake, Alert Motor/Sensory: No Motor Deficit, No Sensory Deficit - DERM Integumentary: Warm, Dry Course - Re-evaluation Re-evalutation: 11/11/17 18:36 Patient is okay with cephalexin Discharge - Discharge Clinical Impression: right gt ingrown toenail Condition: Good Disposition: HOME, SELF-CARE Instructions: Ingrown Nail ([facility]), Cephalexin ([facility]), Acetaminophen, Use of Over- The-Counter Ibuprofen ([facility]) Additional Instructions: soak foot in warm soapy water twice a day keflex antibiotics keep nail filed straight and shorter lift nail and pull skin aside as instructed see business line controller if it persists Prescriptions: Cephalexin Monohydrate [Keflex 500 mg Capsule] 500 mg PO QID #28 capsule Referrals: TONI BARAJAS DPM [ACTIVE STAFF] - Follow up as needed
[2017-11-11 18:27] VITALS: BP 131/88
== END 2017-11-11 18:38 | disposition home or self-care (01) ==
LOC: ER 18:07
DX: L60.0 Ingrowing nail (principal)
CPT/HCPCS: 99283

== ENCOUNTER 2017-12-12 10:47 | Day surgery (SDC) | payer OTHER ==
[2017-12-12 11:17] LABS: APPEARANCE,URINE CLEAR; BILIRUBIN,URINE NEGATIVE (NEGATIVE); COLOR,URINE YELLOW; GLUCOSE, URINE NEGATIVE (NEGATIVE); KETONES,URINE NEGATIVE (NEGATIVE); LEUKOCYTE ESTERASE,URINE NEGATIVE (NEGATIVE); NITRITE,URINE NEGATIVE (NEGATIVE); PROTEIN,URINE NEGATIVE (NEGATIVE); URINE SPECIFIC GRAVITY 1.021
[2017-12-12 11:25] LABS: HEMATOCRIT 40.3 % (36.0-47.0); HEMOGLOBIN 13.5 g/dL (12.0-15.5); MEAN CORPUSCULAR HEMOGLOBIN 27.1 pg (27.0-33.4); MEAN CORPUSCULAR HGB CONC 33.4 g/dL (32.0-36.0); MEAN CORPUSCULAR VOLUME 81 fl (80-97); PLATELET COUNT 237 10^3/uL (150-450); RED BLOOD COUNT 4.98 10^6/uL (3.72-5.28); RED CELL DISTRIBUTION WIDTH 14.1 % (11.5-14.0); WHITE BLOOD COUNT 10.9 10^3/uL (4.0-10.5)
[2017-12-12] MEDS ORDERED: BUPIVACAINE HCL 0.5%-EPI 1:200000 INJ/PF 30 ML VIAL ONE (13:04)
[2017-12-12] MEDS ORDERED: MIDAZOLAM 2 MG/2 ML INJ ONE (13:41)
[2017-12-12] MEDS ORDERED: ACETAMINOPHEN 100 ML IV ONE (13:41)
[2017-12-12] MEDS ORDERED: FENTANYL CITRATE INJ/PF 100 MCG/2 ML AMPUL ONE (13:41)
[2017-12-12] MEDS ORDERED: PROPOFOL INJ 200 MG/20 ML VIAL IV ONE (13:41)
[2017-12-12] MEDS ORDERED: ONDANSETRON HCL INJ/PF 4 MG/2 ML SDV ONE ×2 (13:41→15:08)
[2017-12-12] MEDS ORDERED: MORPHINE SULFATE 10 MG/ML INJ IV PRN (14:07)
[2017-12-12] MEDS ORDERED: DIPHENHYDRAMINE HCL 50 MG/ML VIAL IV PRN (14:07)
[2017-12-12] MEDS ORDERED: FENTANYL CITRATE INJ/PF 100 MCG/2 ML AMPUL IV PRN ×3 (14:07)
[2017-12-12] MEDS ORDERED: MEPERIDINE HCL/PF INJ 25 MG/1 ML DISP.SYRIN IV PRN (14:07)
[2017-12-12] MEDS ORDERED: KETOROLAC TROMETHAMINE INJ/PF 30 MG/1 ML SDV ONE (15:08)
[2017-12-12] MEDS: FENTANYL CITRATE INJ/PF 100 MCG/2 ML AMPUL ONE ×2 (15:10→15:15)
[2017-12-12] MEDS ORDERED: RINGERS SOLUTION,LACTATED 1,000 ML IV PRN (15:30)
[2017-12-12] MEDS ORDERED: OXYCODONE-ACETAMINOPHEN 5-325 MG TABLET PO PRN ×2 (15:31→15:32)
--- NOTE | 2017-12-12 15:34 | OPERATIVE REPORT E ---
Operative Report NAME: REJI CHAVEZ : 1985 AGE: 32Y DATE OF SURGERY: 12/12/2017 ROOM: PREOPERATIVE DIAGNOSIS: Left Bartholin cyst. POSTOPERATIVE DIAGNOSIS: Left labial cyst. PROCEDURE: Excision of left labial cyst. SURGEON: CUATE KRAUS M.D. ANESTHESIA: Dr. Alas with conscious sedation. ESTIMATED BLOOD LOSS: 20 mL. SPECIMENS REMOVED: Left labial cyst. PROCEDURE IN DETAIL: Patient was taken to the operating room, prepared and draped in a normal sterile fashion in dorsal lithotomy position. Under sterile conditions an in-and-out cath was performed of approximately 10 mL of clear urine. Exam was performed and the cyst was located. The area around the cyst was injected with approximately 5 mL of lidocaine with epinephrine. Under exam it was noted that this cyst was about the size of the end of my pinky finger and was very, very hard and actually rather than being near the Bartholin gland was actually more in the labia majora tissue. Now that the patient was under anesthesia it was easier to ascertain this on the exam. Therefore, an incision was made just above the cyst and this was extended down vertically approximately half the length of the labia majora. The cyst was carefully excised using Metzenbaums and palpation for location of the cyst. I continued excision of the area until the cyst was freed. I examined once more and felt that there was still a little bit of the cyst left and the cyst wall was noticeable in the mucosa. I, therefore, continued dissection of the area until the rest of the cyst was obtained cleanly using the Metzenbaums. Once I felt the entire specimen was located and removed I then inspected the defect and closed with 2-0 Vicryl internally in a running fashion. The skin was then closed with 4-0 Vicryl in a running fashion as well. The patient tolerated the procedure well. Sponge, lap and needle counts were correct x2. At the end of the procedure I did watch the area carefully for any signs of hematoma formation and I saw none. This was done for several minutes and once I was reassured that there was no hematoma forming I then made the decision to conclude the case and the patient was taken down and taken to recovery in stable condition. Sponge, lap and needle counts were correct x2. DICTATING PHYSICIAN: CUATE KRAUS M.D. [id number] PHY#: [id number] ID: [id number] JOB#: [id number] ACCT: [id number] cc:CUATE KRAUS M.D. >
[2017-12-12] MEDS ORDERED: OXYCODONE-ACETAMINOPHEN 5-325 MG TABLET ONE (15:56)
[2017-12-12] MEDS ORDERED: IBUPROFEN 800 MG TABLET PO PRN (16:00)
[2017-12-12] MEDS ORDERED: MORPHINE SULFATE 10 MG/ML INJ IM PRN (16:00)
[2017-12-12 17:33] VITALS: BP 132/83
== END 2017-12-12 17:25 | disposition home or self-care (01) ==
LOC: OROUT 10:47
PROVIDERS: ATTEND Obstetrics & Gynecology
DX: N90.7 Vulvar cyst (principal); G40.909 Epilepsy, unspecified, not intractable, without status epilepticus; Z88.0 Allergy status to penicillin; Z88.2 Allergy status to sulfonamides; Z88.8 Allergy status to other drugs, medicaments and biological substances
CPT/HCPCS: 36415; 85027; 81025; 81001; 88305 ×2; 88312 ×2; 11420; J2250; J3490; J3010; J1885; J2405; J2704; J0131; 940

== ENCOUNTER 2017-12-29 17:13 | Emergency (ER) | payer OTHER ==
--- NOTE | 2017-12-29 18:20 | ER Document Report ---
ED Medical Screen (RME) - General Chief Complaint: Post Surgical Pain Stated Complaint: SURGICAL PAIN Time Seen by Provider: 12/29/17 18:14 Notes: RAPID MEDICAL EVALUATION DISCLOSURE I have seen this patient as part of a Rapid Medical Evaluation and, if applicable, placed any initially appropriate orders. The patient will be seen and fully evaluated, including a full history and physical exam, by a provider ( in Main ED or Fast Track) when a room becomes available. 32-year-old female here with complaints of vaginal pain (has been taking ibuprofen) that has been ongoing for the past 1 weeks. She had a vaginal cyst removed [address] King and her one-week follow-up went well however over the past 1 week the pain is worsened and today she went to an urgent care center that told her she needed to come get checked out at the ER because "something more could be going on". However the reportedly did not tell her specifically what they were worried about. They checked her urine and told her she did not have a urine infection. TRAVEL OUTSIDE OF THE [place] IN LAST 30 DAYS: No - Related Data Allergies/Adverse Reactions: amoxicillin Allergy (Verified 12/29/17 17:16) metoclopramide [From Reglan] Allergy (Verified 12/29/17 17:16) Penicillins Allergy (Verified 12/29/17 17:16) prochlorperazine [From Compazine] Allergy (Verified 12/29/17 17:16) promethazine [From Phenergan] Allergy (Verified 12/29/17 17:16) Sulfa (Sulfonamide Antibiotics) Allergy (Verified 12/29/17 17:16) Past Medical History - Past Medical History Cardiac Medical History: Reports: Hx Hypertension - NO MEDICATION Denies: Hx Coronary Artery Disease, Hx Heart Attack Pulmonary Medical History: Denies: Hx Asthma, Hx Bronchitis, Hx COPD, Hx Pneumonia Neurological Medical History: Reports: Hx Seizures - X 1 (2017), NO MEDICATION. Denies: Hx Cerebrovascular Accident Renal/ Medical History: Reports: Hx Kidney Stones. Denies: Hx Peritoneal Dialysis Musculoskeltal Medical History: Denies Hx Arthritis Past Surgical History: Reports: Hx Section, Hx Oral Surgery - wisdom teeth - Immunizations Hx Diphtheria, Pertussis, Tetanus Vaccination: Yes History of Influenza Vaccine for 05/2017 - 10/2017 Season: Yes Influenza Administration Date for 05/2017 - 10/2017 Season: 09/14/17 Physical Exam - Vital signs Vitals: Temp Pulse Resp BP Pulse Ox 98.6 F 98 16 121/73 98 12/29/17 17:21 12/29/17 17:21 12/29/17 17:21 12/29/17 17:21 12/29/17 17:21 Course - Vital Signs Vital signs: Temp Pulse Resp BP Pulse Ox 98.6 F 98 16 121/73 98 12/29/17 17:21 12/29/17 17:21 12/29/17 17:21 12/29/17 17:21 12/29/17 17:21
[2017-12-29 19:51] LABS: APPEARANCE,URINE SLIGHTLY-CLOUDY; BILIRUBIN,URINE NEGATIVE (NEGATIVE); COLOR,URINE YELLOW; GLUCOSE, URINE NEGATIVE (NEGATIVE); KETONES,URINE NEGATIVE (NEGATIVE); LEUKOCYTE ESTERASE,URINE NEGATIVE (NEGATIVE); NITRITE,URINE NEGATIVE (NEGATIVE); PROTEIN,URINE NEGATIVE (NEGATIVE); URINE SPECIFIC GRAVITY 1.005; UROBILINOGEN,URINE NEGATIVE mg/dL (<2.0)
--- NOTE | 2017-12-29 20:14 | ER Document Report ---
ED General - General Chief Complaint: Post Surgical Pain Stated Complaint: SURGICAL PAIN Time Seen by Provider: 12/29/17 18:14 Mode of Arrival: Ambulatory Information source: Patient TRAVEL OUTSIDE OF THE [place] IN LAST 30 DAYS: No - HPI Notes: 32-year-old female here with complaints of vaginal pain (has been taking ibuprofen) that has been ongoing for the past 1 weeks. She had a vaginal cyst removed [address] King and her one-week follow-up went well however over the past 1 week the pain is worsened and today she went to an urgent care center that told her she needed to come get checked out at the ER because "something more could be going on". However the reportedly did not tell her specifically what they were worried about. They checked her urine and told her she did not have a urine infection. The patient reports her lower pelvic pain has progressed over the course of the day and seems slightly right greater than left sided. She questions a urinary tract infection based upon symptoms with mild urinary frequency and urgency. She denies any flank pain. She states she had a temperature of 100.0 earlier. - Related Data Allergies/Adverse Reactions: amoxicillin Allergy (Verified 12/29/17 17:16) metoclopramide [From Reglan] Allergy (Verified 12/29/17 17:16) Penicillins Allergy (Verified 12/29/17 17:16) prochlorperazine [From Compazine] Allergy (Verified 12/29/17 17:16) promethazine [From Phenergan] Allergy (Verified 12/29/17 17:16) Sulfa (Sulfonamide Antibiotics) Allergy (Verified 12/29/17 17:16) Past Medical History - General Information source: Patient - Social History Smoking Status: Former Smoker Frequency of alcohol use: Rare Drug Abuse: None Lives with: Alone Family History: Reviewed & Not Pertinent Patient has suicidal ideation: No Patient has homicidal ideation: No - Past Medical History Cardiac Medical History: Reports: Hx Hypertension - NO MEDICATION Denies: Hx Coronary Artery Disease, Hx Heart Attack Pulmonary Medical History: Denies: Hx Asthma, Hx Bronchitis, Hx COPD, Hx Pneumonia Neurological Medical History: Reports: Hx Seizures - X 1 (2017), NO MEDICATION. Denies: Hx Cerebrovascular Accident Renal/ Medical History: Reports: Hx Kidney Stones. Denies: Hx Peritoneal Dialysis Musculoskeltal Medical History: Denies Hx Arthritis Past Surgical History: Reports: Hx Section, Hx Oral Surgery - wisdom teeth - Immunizations Hx Diphtheria, Pertussis, Tetanus Vaccination: Yes Review of Systems - Review of Systems Notes: REVIEW OF SYSTEMS: CONSTITUTIONAL : Denies fever, chills, or sweats. Denies recent illness. EENT: Denies eye, ear, throat, or mouth pain or symptoms. Denies nasal or sinus congestion or discharge. Denies throat, tongue, or mouth swelling or difficulty swallowing. CARDIOVASCULAR: Denies chest pain. Denies palpitations or racing or irregular heart beat. Denies ankle edema. RESPIRATORY: Denies cough, cold, or chest congestion. Denies shortness of breath, difficulty breathing, or wheezing. GASTROINTESTINAL: Denies abdominal distention. Denies nausea, vomiting, or diarrhea. Denies blood in vomitus, stools, or per rectum. Denies black, tarry stools. Denies constipation. GENITOURINARY: Denies blood in urine, or discharge. FEMALE GENITOURINARY: Denies vaginal bleeding, heavy or abnormal periods, irregular periods. Denies vaginal discharge or odor. MUSCULOSKELETAL: Denies back or neck pain or stiffness. Denies joint pain or swelling. SKIN: Denies rash, lesions or sores. HEMATOLOGIC : Denies easy bruising or bleeding. LYMPHATIC: Denies swollen, enlarged glands. NEUROLOGICAL: Denies confusion or altered mental status. Denies passing out or loss of consciousness. Denies dizziness or lightheadedness. Denies headache. Denies weakness or paralysis or loss of use of either side. Denies problems with gait or speech. Denies sensory loss, numbness, or tingling. Denies seizures. PSYCHIATRIC: Denies anxiety or stress. Denies depression, suicidal ideation, or homicidal ideation. ALL OTHER SYSTEMS REVIEWED AND NEGATIVE. Dictation was performed using [employer] AI voice recognition software Physical Exam - Vital signs Vitals: Temp Pulse Resp BP Pulse Ox 98.6 F 98 16 121/73 98 12/29/17 17:21 12/29/17 17:21 12/29/17 17:21 12/29/17 17:21 12/29/17 17:21 - Notes Notes: PHYSICAL EXAMINATION: GENERAL: Well-appearing, well-nourished and in no acute distress. HEAD: Atraumatic, normocephalic. EYES: Pupils equal round and reactive to light, extraocular movements intact, conjunctiva are normal. ENT: Nares patent, oropharynx clear without exudates. Moist mucous membranes. NECK: Normal range of motion, supple without lymphadenopathy LUNGS: Breath sounds clear to auscultation bilaterally and equal. No wheezes rales or rhonchi. HEART: Regular rate and rhythm without murmurs ABDOMEN: Soft nondistended abdomen. No guarding, no rebound. No masses appreciated. Tender suprapubic and slightly right greater than left. No mass noted. Female : Patient has a Bartholin's surgical site on the left which appears to be healing very well without evidence for inflammation or infection. Otherwise normal external female genitalia. Cervix appears benign there is no significant discharge. There is mild pain to the suprapubic region. Cannot completely exclude pain to the uterine area but there is no significant cervical motion tenderness. No adnexal mass, but patient does have pain slightly right greater than left. Musculoskeletal: Normal range of motion, no pitting or edema. No cyanosis. NEUROLOGICAL: Cranial nerves grossly intact. Normal speech, normal gait. Normal sensory, motor exams PSYCH: Normal mood, normal affect. SKIN: Warm, Dry, normal turgor, no rashes or lesions noted. Course - Re-evaluation Re-evalutation: 12/29/17 22:53 CT scan was negative for appendicitis. Lab work was benign. Urine specimen showed evidence for UTI. Urine culture was taken and the patient will be started on Cipro given her allergies. Specimen was sent for gonorrhea and chlamydia during the pelvic exam. There is no evidence for diverticulitis or ovarian abscess or obvious ovarian cyst. No evidence for sepsis. Unlikely PID given the findings. - Vital Signs Vital signs: Temp Pulse Resp BP Pulse Ox 98.6 F 98 16 121/73 98 12/29/17 17:21 12/29/17 17:21 12/29/17 17:21 12/29/17 17:21 12/29/17 17:21 - Laboratory Result Diagrams: 12/29/17 21:32 12/29/17 21:32 Laboratory results interpreted by me: 12/29/17 12/29/17 12/29/17 19:36 21:32 21:32 WBC 10.6 H BUN 6 L Urine Ascorbic Acid 20 H
[2017-12-29] MEDS ORDERED: IBUPROFEN 800 MG TABLET PO ONE (20:23)
[2017-12-29 21:48] LABS: ABSOLUTE BASOPHILS # (AUTO) 0.1 10^3/uL (0.0-0.2); ABSOLUTE EOSINOPHILS # (AUTO) 0.2 10^3/uL (0.0-0.6); ABSOLUTE LYMPHOCYTES (AUTO) 3.4 10^3/uL (0.5-4.7); ABSOLUTE MONOCYTES (AUTO) 0.7 10^3/uL (0.1-1.4); ABSOLUTE NEUT (AUTO) 6.3 10^3/uL (1.7-8.2); BASOPHILS % (AUTO) 0.7 % (0-2); HEMATOCRIT 37.7 % (36.0-47.0); HEMOGLOBIN 12.8 g/dL (12.0-15.5); LYMPHOCYTES % (AUTO) 31.9 % (13-45); MEAN CORPUSCULAR HEMOGLOBIN 27.3 pg (27.0-33.4); MEAN CORPUSCULAR HGB CONC 33.8 g/dL (32.0-36.0); MEAN CORPUSCULAR VOLUME 81 fl (80-97); MONOCYTES % (AUTO) 6.6 % (3-13); PLATELET COUNT 219 10^3/uL (150-450); RED BLOOD COUNT 4.67 10^6/uL (3.72-5.28); SEGMENTED NEUTROPHILS % (AUTO) 58.8 % (42-78); TOTAL CELLS COUNTED % (AUTO) 100 %; WHITE BLOOD COUNT 10.6 10^3/uL (4.0-10.5)
[2017-12-29 22:13] LABS: ALANINE AMINOTRANSFERASE 26 U/L (9-52); ALKALINE PHOSPHATASE 74 U/L (38-126); ANION GAP 12 (5-19); ASPARTATE AMINO TRANSFERASE 14 U/L (14-36); BILIRUBIN,DIRECT 0.3 mg/dL (0.0-0.4); BILIRUBIN,TOTAL 0.4 mg/dL (0.2-1.3); BLOOD UREA NITROGEN 6 mg/dL (7-20); CALCIUM 9.5 mg/dL (8.4-10.2); CARBON DIOXIDE 29 mmol/L (22-30); CHLORIDE 100 mmol/L (98-107); GLUCOSE 84 mg/dL (75-110); POTASSIUM 3.7 mmol/L (3.6-5.0); SODIUM 140.7 mmol/L (137-145); TOTAL PROTEIN 6.8 g/dL (6.3-8.2)
--- NOTE | 2017-12-29 22:39 | RADIOLOGY REPORT (SQ) ---
EXAM DESCRIPTION: CT ABD/PELVIS WITH IV ONLY COMPLETED DATE/TIME: 12/29/2017 10:31 pm REASON FOR STUDY: RLQ pain COMPARISON: 03/05/2017 TECHNIQUE: CT scan of the abdomen and pelvis performed using helical scanning technique with dynamic intravenous contrast injection. No oral contrast. Images reviewed with lung, soft tissue, and bone windows. Reconstructed coronal and sagittal MPR images reviewed. Delayed images for evaluation of the urinary system also acquired. All images stored on PACS. All CT scanners at this facility use dose modulation, iterative reconstruction, and/or weight based d osing when appropriate to reduce radiation dose to as low as reasonably achievable (ALARA). [facility]: Dose Right [facility]: CareDose [facility]: Dose Right [facility]: Teradose 4D [facility]: CleanBeeBaby CONTRAST TYPE AND DOSE: contrast/concentration: Isovue 370.00 mg/ml; Total Contrast Delivered: 100.0 ml; Total Saline Delivered: 72.0 ml RENAL FUNCTION: None required. The patient is less than 50 years old. RADIATION DOSE: CT Rad equipment meets quality standard of care and radiation dose reduction techniq ues were employed. CTDIvol: 19.9 - 21.1 mGy. DLP: 2244 mGy-cm.. LIMITATIONS: None. FINDINGS: LOWER CHEST: No significant findings. No nodules or infiltrates. LIVER: Normal size. No masses. No dilated ducts. SPLEEN: Normal size. No focal lesions. PANCREAS: No masses. No significant calcifications. No adjacent inflammation or peripancreatic fluid collections. Pancreatic duct not dilated. GALLBLADDER: No identified stones by CT criteria. No inflammatory changes to suggest cholecystitis. ADRENAL GLANDS: No significant masses or asymmetry. RIGHT KIDNEY AND URETER: No solid masses. No significant calcifications. No hydronephrosis or hyd roureter. LEFT KIDNEY AND URETER: No solid masses. No significant calcifications. No hydronephrosis or hydr oureter. AORTA AND VESSELS: No aneurysm. No dissection. Renal arteries, SMA, celiac without stenosis. RETROPERITONEUM: No retroperitoneal adenopathy, hemorrhage or masses. BOWEL AND PERITONEAL CAVITY: No masses or inflammatory changes. No free fluid or peritoneal masses. APPENDIX: Normal. PELVIS: No mass. No free fluid. Normal bladder. ABDOMINAL WALL: No masses. No hernias. BONES: No significant or acute findings. OTHER: No other significant finding. IMPRESSION: NO SIGNIFICANT OR ACUTE FINDING IN THE ABDOMEN OR PELVIS ON CT SCAN WITH IV CONTRAST. TECHNICAL DOCUMENTATION: JOB ID: [id number] Quality ID # [id number]: Final reports with documentation of one or more dose reduction techniques (e.g., Au tomated exposure control, adjustment of the mA and/or kV according to patient size, use of iterative reconstruction technique) 2010 [employer]- All Rights Reserved Reading location - IP/workstation name: [email or web address]
[2017-12-29] MEDS ORDERED: CIPROFLOXACIN HCL 500 MG TABLET PO ONE (22:47)
[2017-12-29 23:31] VITALS: BP 108/69
[2017-12-30 00:29] LABS: CHLAM PCR NOT DETECTED (NOT DETECT); GON PCR NOT DETECTED (NOT DETECT)
== END 2017-12-29 23:35 | disposition home or self-care (01) ==
LOC: ER 17:13
DX: N30.00 Acute cystitis without hematuria (principal); R10.30 Lower abdominal pain, unspecified; G89.18 Other acute postprocedural pain; Z88.0 Allergy status to penicillin; Z88.2 Allergy status to sulfonamides; Z87.442 Personal history of urinary calculi
CPT/HCPCS: 36415; 74177; 80053; 81001; 81025; 85025; 87086; 87491; 87591; 99284

== ENCOUNTER 2018-01-19 13:45 | Emergency (ER) | payer OTHER ==
[2018-01-19 13:56] VITALS: BP 125/77
[2018-01-19 14:18] LABS: APPEARANCE,URINE CLEAR; BILIRUBIN,URINE NEGATIVE (NEGATIVE); COLOR,URINE YELLOW; GLUCOSE, URINE NEGATIVE (NEGATIVE); KETONES,URINE NEGATIVE (NEGATIVE); LEUKOCYTE ESTERASE,URINE NEGATIVE (NEGATIVE); NITRITE,URINE NEGATIVE (NEGATIVE); PROTEIN,URINE NEGATIVE (NEGATIVE); URINE SPECIFIC GRAVITY 1.015; UROBILINOGEN,URINE NEGATIVE mg/dL (<2.0)
--- NOTE | 2018-01-19 14:25 | ER Document Report ---
HPI - HPI Pain Level: 3 Context: Patient is a 32-year-old female who presents emergency room with a chief complaint urinary urgency, frequency with very mild pyuria. Patient states that she was seen here approximately 3 weeks ago and sent home on a seven-day course of Cipro for UTI. Patient states that her symptoms did not improve after antibiotic. She states that she is noticed urinary frequency over the past 2 days and with her associated loose bowel movements has intermittent burning post void. Patient did not follow up with her primary care provider. Patient states that she does have a history of recurrent UTIs and had previously followed with the urologist in her previous home state but does not establish care with one since moving to [place] over a year ago. Patient admits to associated loose bowel movements for the past 3 days without any nausea, vomiting, fevers, chills or focal abdominal pain. States her son had these symptoms before her Patient's last menstrual period was January 05, admits to tubal ligation. Denies any pelvic pain, vaginal discharge - URINARY Urinary: REPORTS: Urgency, Frequency - REPRODUCTIVE LMP: 01/05/18 Past Medical History - Social History Smoking Status: Unknown if Ever Smoked Family History: Reviewed & Not Pertinent Patient has suicidal ideation: No Patient has homicidal ideation: No - Past Medical History Cardiac Medical History: Reports: Hx Hypertension - NO MEDICATION Denies: Hx Coronary Artery Disease, Hx Heart Attack Pulmonary Medical History: Denies: Hx Asthma, Hx Bronchitis, Hx COPD, Hx Pneumonia Neurological Medical History: Reports: Hx Seizures - X 1 (2017), NO MEDICATION. Denies: Hx Cerebrovascular Accident Renal/ Medical History: Reports: Hx Kidney Stones. Denies: Hx Peritoneal Dialysis Musculoskeltal Medical History: Denies Hx Arthritis Past Surgical History: Reports: Hx Section, Hx Oral Surgery - wisdom teeth - Immunizations Hx Diphtheria, Pertussis, Tetanus Vaccination: Yes Vertical Provider Document - CONSTITUTIONAL Agree With Documented VS: Yes Notes: PHYSICAL EXAM GENERAL: Alert, interacts well. HEAD: Normocephalic, atraumatic. EYES: Pupils equal, round, and reactive to light. Extraocular movements intact. ENT: Oral mucosa moist, tongue midline. NECK: Full range of motion. Supple. Trachea midline. LUNGS: Clear to auscultation bilaterally, no wheezes, rales, or rhonchi. No respiratory distress. HEART: Regular rate and rhythm. No murmurs, gallops, or rubs. ABDOMEN: Soft, nondistended, nontender. No guarding, rebound, or rigidity.. Bowel sounds present in all 4 quadrants. FEMALE : Normal external exam. No evidence of lesions, lacerations, bruising or vesicles. Speculum exam normal cervix closed. No evidence of vaginal discharge with odor. No evidence of lesions. No vaginal bleeding. Bimanual exam normal no cervical motion tenderness. No adnexal mass or adnexal tenderness. EXTREMITIES: Moves all 4 extremities spontaneously. No edema, radial and dorsalis pedis pulses 2/4 bilaterally. No cyanosis. NEUROLOGICAL: Alert and oriented x4. Normal speech. PSYCH: Normal affect, normal mood. SKIN: Warm, dry, normal turgor. No rashes or lesions noted. - INFECTION CONTROL TRAVEL OUTSIDE OF THE [place] IN LAST 30 DAYS: No Course - Re-evaluation Re-evalutation: 01/19/18 15:22 Patient is a 32-year-old female is hemodynamically stable, no acute distress afebrile. Urinalysis without any evidence of bacteria, concerns for UTI. Chlamydia and gonorrhea done 3 weeks ago negative. Wet mount today negative for yeast or bacterial vaginitis. Educated patient on utilizing 31 for her diarrhea. No concerns for C. difficile given patient afebrile, no abdominal tenderness and has only had 2 days of loose bowel movements with 2 loose bowel movements a day. Did discuss with her to follow-up with her primary care provider. Will discharge home - Vital Signs Vital signs: Temp Pulse Resp BP Pulse Ox 98.6 F 81 16 125/77 100 01/19/18 13:51 01/19/18 13:51 01/19/18 13:51 01/19/18 13:51 01/19/18 13:51 Discharge - Discharge Clinical Impression: Diarrhea Qualifiers: Diarrhea type: unspecified type Qualified Code(s): R19.7 - Diarrhea, unspecified Condition: Good Disposition: HOME, SELF-CARE Instructions: Diarrhea, Nonspecific ([facility]) Additional Instructions: [facility] [address] [place] [address] Referrals: AWAIS ROSENBAUM PA-C [PHYSICIAN SECURITY INSPECTOR] - Follow up tomorrow
[2018-01-19 14:49] LABS: BACTERIA (WET MOUNT) 3+ BACTERIA SEEN; T.VAGINALIS (WET MOUNT) NO TRICHOMONAS SEEN; WBCS (WET MOUNT) 2+ WBCS SEEN; YEAST (WET MOUNT) NO YEAST SEEN
[2018-01-19 16:17] LABS: CHLAM PCR NOT DETECTED (NOT DETECT); GON PCR NOT DETECTED (NOT DETECT)
== END 2018-01-19 15:15 | disposition home or self-care (01) ==
LOC: ER 13:45
DX: R19.7 Diarrhea, unspecified (principal); R39.15 Urgency of urination; I10 Essential (primary) hypertension; Z98.51 Tubal ligation status; Z87.440 Personal history of urinary (tract) infections; Z87.442 Personal history of urinary calculi
CPT/HCPCS: 81001; 81025; 87086; 87210; 87491; 87591; 99283